=== PATIENT | male | born 1990 | race African-American/Black ===

== ENCOUNTER 2018-12-03 23:16 | Emergency (ER) | payer OTHER ==
[2018-12-04] MEDS ORDERED: Tetan/Diph/Pertus SYR(Tdap)* 0.5 ML SYR(BOOSTRIX) use SYR contains LATEX IM ONE (03:04)
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
[2018-12-04] MEDS ORDERED: Lidocaine 1% INJ* 10 MG/ML 30 ML SDV INJ ONE (03:16)
[2018-12-04 04:24] VITALS: BP 132/78
== END 2018-12-04 04:22 | disposition home or self-care (01) ==
LOC: ED 23:16
DX: S01.412A Laceration without foreign body of left cheek and temporomandibular area, initial encounter (principal); W26.9XXA Contact with unspecified sharp object(s), initial encounter; Y92.149 Unspecified place in prison as the place of occurrence of the external cause; Z23 Encounter for immunization; Z88.0 Allergy status to penicillin
CPT/HCPCS: 12014; 90471; 90715; 99282